=== PATIENT | male | born 1985 | race Caucasian/White ===

== ENCOUNTER 2018-10-01 05:47 | Day surgery (SDC) | payer OTHER, BC ==
[2018-10-01] MEDS ORDERED: PROPOFOL 20 ML (08:40)
[2018-10-01] MEDS ORDERED: MIDAZOLAM 1 MG/ML 2 ML INJ (08:40)
[2018-10-01] MEDS ORDERED: LIDOCAINE 2% (SDV) 5 ML INJ (08:40)
== END 2018-10-01 10:54 | disposition home or self-care (01) ==
LOC: GIL 05:47
DX: K64.4 Residual hemorrhoidal skin tags (principal); Z87.891 Personal history of nicotine dependence
CPT/HCPCS: 45380; 88305

== ENCOUNTER 2018-10-27 00:14 | Emergency (ER) | payer SELFPAY, OTHER | END 2018-10-27 01:40 | disposition left against medical advice (07) | LOC: FTE 00:14 | DX: Z53.21 Procedure and treatment not carried out due to patient leaving prior to being seen by health care provider (principal) ==